=== PATIENT | female | born 1980 | race Caucasian/White ===

== ENCOUNTER 2020-12-11 17:46 | Emergency (ER) | payer MEDICAID, MEDICARE, OTHER ==
[~2020-12-11] VITALS: Ht 162.6 cm; Wt 59.0 kg
[~2020-12-11 17:46] MED LIST: ASPI-1497 PO; ATOR20TA65 PO; BENA5TAB6 PO; BENZ1TAB7 PO; GABA800T97 PO; HYDR-4001 PO; METF-414 PO; MIRT45TA83 PO; RISP4TAB31 PO; TIZA4TAB5 PO; TRAM50TA3 PO; TRAZ-252 PO
[2020-12-11 19:44] LABS: BASOPHILS % 0.4 % (0.0-2.0); EOSINOPHILS % 0.3 % (0.0-5.0); HEMATOCRIT. 36.6 % (36.0-48.0); LYMPHOCYTES % 28.4 % (20.0-50.0); MEAN CORPUSCULAR HEMOGLOBIN 27.2 pg (28.0-32.0); MEAN CORPUSCULAR VOLUME 83.4 fL (81.0-99.0); MEAN PLATELET VOLUME 7.4 fl (7.4-10.4); MONOCYTES % 5.3 % (2.0-8.0); NEUTROPHILS % 65.6 % (40.0-76.0); PLATELET 350 x1000/uL (130-400); RED BLOOD CELL COUNT 4.39 mill/uL (4.2-5.4)
[2020-12-11 19:45] LABS: CLARITY URINE CLEAR (CLEAR); COLOR URINE YELLOW (YELLOW); KETONES URINE NEGATIVE (NEGATIVE); LEUKOCYTE ESTERASE URINE NEGATIVE (NEGATIVE); NITRITE URINE NEGATIVE (NEGATIVE); OCCULT BLOOD URINE NEGATIVE (NEGATIVE); PH URINE 7.5 (4.5-8.0); PROTEIN URINE NEGATIVE (NEGATIVE); SPECIFIC GRAVITY URINE 1.007 (1.005-1.030); UROBILINOGEN URINE 0.2 E.U./dL (0.2-1.0)
[2020-12-11 20:00] LABS: CHLORIDE 104 mEq/L (98-107)
[2020-12-11 20:06] LABS: ETHANOL BLOOD < 10 mg/dL
[2020-12-11 20:17] LABS: *BARBITURATES SCREEN URINE NEGATIVE (NEGATIVE); *BENZODIAZEPINES SCREEN URINE NEGATIVE (NEGATIVE); *COCAINE SCREEN URINE NEGATIVE (NEGATIVE); METHADONE URINE SCREEN NEGATIVE (NEGATIVE)
[2020-12-11 20:18] LABS: CANNABINOID URINE SCREEN NEGATIVE (NEGATIVE); OPIATES URINE SCREEN NEGATIVE (NEGATIVE); PHENCYCLIDINE URINE SCREEN NEGATIVE (NEGATIVE)
[2020-12-11 20:22] LABS: *AMPHETAMINES SCREEN URINE PRESUMTIVE POSITIVE (NEGATIVE)
[2020-12-11] MEDS ORDERED: RISP4TAB31 MT ×2 (23:59)
[2020-12-12] MEDS ORDERED: MIRT45TA83 PO ×3 (00:01→10:32)
[2020-12-12] MEDS ORDERED: BENZTROPINE MESYLATE 1MG TABLET PO ONE (01:00)
[2020-12-12] MEDS: RISPERIDONE 1MG TABLET PO SCH ×2 (02:36→03:00)
[2020-12-12] MEDS ORDERED: DIPHENHYDRAMINE 50MG/ML VIAL IM ONE (03:00)
[2020-12-12] MEDS ORDERED: RISP4TAB31 MT (10:32)
[2020-12-12] MEDS ORDERED: BENZ1TAB7 MT ×3 (10:32)
[2020-12-12 12:20] VITALS: BP 140/100
[2020-12-12] MEDS ORDERED: MIRTAZAPINE 30MG TABLET PO SCH (21:00)
== END 2020-12-12 13:00 | disposition home or self-care (01) ==
LOC: ER 17:46
DX: F15.10 Other stimulant abuse, uncomplicated (principal); R45.851 Suicidal ideations; F32.9 Major depressive disorder, single episode, unspecified; Z76.0 Encounter for issue of repeat prescription; E11.9 Type 2 diabetes mellitus without complications; E78.00 Pure hypercholesterolemia, unspecified; I11.9 Hypertensive heart disease without heart failure; F17.210 Nicotine dependence, cigarettes, uncomplicated; Z20.822 Contact with and (suspected) exposure to COVID-19; Z79.84 Long term (current) use of oral hypoglycemic drugs
CPT/HCPCS: 36415; 80053; 80305; 80307; 80320; 80329; 81003; 81025; 85025; 87426; 93005; 96372; 99285; J1200; G0480